=== PATIENT | female | born 1970 | race Caucasian/White ===

== ENCOUNTER → 2016-05-20 18:42 | Emergency (ER) | payer OTHER ==
[~2016-05-20] VITALS: Ht 160 cm; Wt 82.7 kg
[~2016-05-20 18:42] MED LIST: ADVAIR 250/501 DISK IH; ATIVAN1 MG PO; AZITHROMYCIN250 MG PO; AZITHROMYCIN500 M1 PO; BYETTA PEN250 MCG/M1 SC; CLARITIN,ALAVAR10 MG PO; CLARITIN10 M3 PO; CLARITIN10 MG PO; CLEOCIN150 MG PO; CLINDAMYCIN HC150 MG PO; CLINDAMYCIN HC300 MG PO; DEPAKOTE500 MG PO; DIVALPROEX SOD500 MG PO; DOXYCYCLINE HY100 MG PO; FLONASE16 G1 BOTH NARES; GABAPENTIN300 MG PO; GLIPIZIDE XL5 MG PO; GLUCOPHAGE500 MG PO; HARD NAILS2500 MCG PO; HYDROCODON-ACE1 EAC7 PO; HYDROXYZINE PAM25 MG PO; KLONOPIN1 MG PO; LEVOTHYROXINE50 MCG PO; LISINOPRIL5 MG PO; LOVASTATIN20 MG PO; MEDIPLAST CORN1 EACH TP; METFORMIN HCL1000 MG PO; MOBIC7.5 MG PO; PREDNISONE20 MG PO; PREDNISONE50 MG PO; RISPERDAL1 MG PO; TESSALON PERLE100 MG PO; TRAMADOL HCL50 MG PO; TRAZODONE HCL50 MG PO; ZOLOFT50 MG PO; [UNRECOGNIZED DRUG - OTHER] PO
[2016-05-20 19:32] VITALS: BP 142/93
== END | disposition left against medical advice (07) ==
LOC: EME 18:42
DX: R51 Headache (principal); Z53.21 Procedure and treatment not carried out due to patient leaving prior to being seen by health care provider; F17.200 Nicotine dependence, unspecified, uncomplicated

== ENCOUNTER 2016-07-29 16:49 | Emergency (ER) | payer OTHER ==
[~2016-07-29] VITALS: Ht 160 cm; Wt 88.1 kg
[2016-07-29] MEDS ORDERED: PERCOCET 5/31 TABLET PO (17:11)
[2016-07-29] MEDS ORDERED: MOTRIN600 MG PO (17:11)
[2016-07-29 18:10] VITALS: BP 131/90
== END 2016-07-29 18:43 | disposition home or self-care (01) ==
LOC: EME 16:49
DX: T24.232A Burn of second degree of left lower leg, initial encounter (principal); T25.211A Burn of second degree of right ankle, initial encounter; T22.251A Burn of second degree of right shoulder, initial encounter; T31.0 Burns involving less than 10% of body surface; X12.XXXA Contact with other hot fluids, initial encounter; Y04.2XXA Assault by strike against or bumped into by another person, initial encounter; Z23 Encounter for immunization; I10 Essential (primary) hypertension; E78.5 Hyperlipidemia, unspecified; E11.9 Type 2 diabetes mellitus without complications; Z79.84 Long term (current) use of oral hypoglycemic drugs; J45.909 Unspecified asthma, uncomplicated; F17.200 Nicotine dependence, unspecified, uncomplicated
CPT/HCPCS: 99281; 99285; J1885; J3010

== ENCOUNTER 2016-11-29 13:48 | Emergency (ER) | payer OTHER ==
[~2016-11-29] VITALS: Ht 160 cm; Wt 83.3 kg
[~2016-11-29 13:48] MED LIST changes: +MOTRIN600 MG PO; +PERCOCET 5/31 TABLET PO
[2016-11-29 15:21] LABS: HEMATOCRIT 37.6 % (36.0-46.0); MCH 32.3 PG (29.0-34.0); MCHC 34.8 G/DL (30.0-36.0); MCV 92.6 FL (83-99); MEAN PLAT.VOLUME 10.8 uM^3 (9.5-12.4); PLATELET COUNT 248 K/uL (156-360); RBC DIS.WIDTH-CV 12.4 % (11.8-14.6); RBC DIS.WIDTH-SD 42.5 % (39-53); RED BLOOD COUNT 4.06 M/uL (3.80-5.20); WHITE BLOOD COUNT 12.5 K/uL (4.1-10.2)
[2016-11-29 15:31] LABS: CHLORIDE 102 mEq/L (99-109); POTASSIUM 4.2 mEq/L (3.7-5.4); SODIUM 138 mEq/L (136-147)
[2016-11-29 15:33] LABS: GLUCOSE 209 mg/dL (70-99)
[2016-11-29 15:34] LABS: ANION GAP 9 MEQ/L (2-14)
[2016-11-29 15:35] LABS: TOTAL BILIRUBIN 0.1 mg/dL (0.0-1.0)
[2016-11-29 15:37] LABS: ALKALINE PHOSPHATASE 113 IU/L (3-129); GFR ESTIMATE (CALCULATED) > 59 mL/min/
[2016-11-29 15:38] LABS: UREA NITROGEN (BUN) 13 mg/dL (9-23)
[2016-11-29 15:40] LABS: LIPASE 20 U/L (1.0-51.0)
[2016-11-29 15:46] LABS: QUANTITATIVE HCG < 4.0 MIU/ML
[2016-11-29 16:27] LABS: COLOR RED ((YELLOW)); LEUKOCYTES SMALL; NITRITE POSITIVE; PH, URINE 6.5 (5-8)
[2016-11-29 16:28] LABS: ADD MIUA? YES; BILIRUBIN SMALL; BLOOD LARGE; GLUCOSE (STRIP) 1000; KETONES NEGATIVE; PROTEIN (STRIP) >=2000; UROBILINOGEN 0.2 MG/DL (0.2-1.0)
[2016-11-29 16:35] LABS: RED BLOOD CELLS TNTC /HPF (0-5)
[2016-11-29 16:37] LABS: BACTERIA 4+ /HPF
[2016-11-29] MEDS ORDERED: FLAGYL500 MG PO (17:23)
[2016-11-29] MEDS ORDERED: NAPROSYN500 MG PO (17:23)
[2016-11-29] MEDS ORDERED: ZOFRAN ODT4 MG PO (17:23)
[2016-11-29] MEDS ORDERED: VIBRAMYCIN100 MG PO (17:23)
[2016-11-29 18:02] VITALS: BP 138/78
== END 2016-11-29 18:03 | disposition home or self-care (01) ==
LOC: EME 13:48
PROVIDERS: Nurse Practitioner Family
DX: N73.9 Female pelvic inflammatory disease, unspecified (principal); N93.9 Abnormal uterine and vaginal bleeding, unspecified; A54.9 Gonococcal infection, unspecified; E11.9 Type 2 diabetes mellitus without complications; E78.5 Hyperlipidemia, unspecified; I10 Essential (primary) hypertension; Z79.84 Long term (current) use of oral hypoglycemic drugs; J45.909 Unspecified asthma, uncomplicated; F32.9 Major depressive disorder, single episode, unspecified; F17.200 Nicotine dependence, unspecified, uncomplicated; Z98.51 Tubal ligation status; Z88.0 Allergy status to penicillin
CPT/HCPCS: 76856; 80053; 81003; 83690; 84702; 85027; 99281; 99283

== ENCOUNTER 2017-02-24 05:19 | Day surgery (SDC) | payer OTHER ==
[~2017-02-24] VITALS: Ht 160 cm; Wt 83.0 kg
[~2017-02-24 05:19] MED LIST changes: +ELAVIL75 MG PO; +FLAGYL500 MG PO; +NAPROSYN500 MG PO; +TRILEPTAL300 MG PO; +VIBRAMYCIN100 MG PO; +ZOFRAN ODT4 MG PO
[2017-02-24 07:25] VITALS: BP 125/77
[2017-02-24] MEDS ORDERED: MOTRIN800 MG PO (09:16)
[2017-02-24] MEDS ORDERED: NORCO 5/3251 TABLET PO (09:16)
[2017-02-24 09:50] VITALS: BP 128/79
[2017-02-24 10:53] VITALS: BP 134/89
== END 2017-02-24 10:55 | disposition home or self-care (01) ==
LOC: SDC 05:19
PROVIDERS: Obstetrics & Gynecology
DX: N92.0 Excessive and frequent menstruation with regular cycle (principal); Z98.51 Tubal ligation status; I10 Essential (primary) hypertension; E11.9 Type 2 diabetes mellitus without complications; E03.9 Hypothyroidism, unspecified; F17.200 Nicotine dependence, unspecified, uncomplicated; Z79.84 Long term (current) use of oral hypoglycemic drugs; Z88.0 Allergy status to penicillin
CPT/HCPCS: 82948; 84702; 84703; 88305; J0330; J1885; J2250; J2405; J3010; J7120; Q0175

== ENCOUNTER → 2017-09-04 | Outpatient (CLI) | payer OTHER ==
[~2017-09-04] MED LIST changes: +ELAVIL100 MG PO; -ELAVIL75 MG PO; +GLUCOTROL XL5 MG PO; +MOTRIN800 MG PO; +NORCO 5/3251 TABLET PO; +VERAPAMIL HCL120 M2 PO; +VITAMIN D31000 UNI2 PO; +ZYRTEC10 M3 PO
== END | disposition home or self-care (01) ==
LOC: RAD 08:45
DX: R13.10 Dysphagia, unspecified (principal)
CPT/HCPCS: 74220

== ENCOUNTER → 2017-09-11 | Outpatient (CLI) | payer OTHER ==
[~2017-09-11] VITALS: Ht 160 cm; Wt 88.0 kg
[2017-09-11 11:51] LABS: CHLORIDE 103 MEQ/L (99-109); POTASSIUM 4.5 MEQ/L (3.7-5.4); SODIUM 138 MEQ/L (136-147)
[2017-09-11 11:56] LABS: CREATININE 0.5 MG/DL (0.6-1.3); GFR ESTIMATE (CALCULATED) > 59 mL/min/; GLUCOSE 301 mg/dL (70-99); UREA NITROGEN (BUN) 11 mg/dL (9-23)
== END | disposition home or self-care (01) ==
LOC: AMB 10:36
PROVIDERS: Anesthesiology; Internal Medicine Gastroenterology
PROC: 0DB18ZX Excision of Upper Esophagus, Via Natural or Artificial Opening Endoscopic, Diagnostic (ICD-10-PCS; principal; 2017-09-11)
PROC: 0DB38ZX Excision of Lower Esophagus, Via Natural or Artificial Opening Endoscopic, Diagnostic (ICD-10-PCS; principal; 2017-09-11)
DX: R13.10 Dysphagia, unspecified (principal); R63.4 Abnormal weight loss; Z80.0 Family history of malignant neoplasm of digestive organs; Z68.34 Body mass index [BMI] 34.0-34.9, adult; F17.200 Nicotine dependence, unspecified, uncomplicated; Z79.84 Long term (current) use of oral hypoglycemic drugs; Z82.49 Family history of ischemic heart disease and other diseases of the circulatory system; Z82.5 Family history of asthma and other chronic lower respiratory diseases; Z88.0 Allergy status to penicillin; Z88.8 Allergy status to other drugs, medicaments and biological substances
CPT/HCPCS: 80048; 82948; 88305